=== PATIENT | male | born 1970 | race Caucasian/White ===

== ENCOUNTER 2016-12-12 14:26 | Emergency (ER) | payer OTHER ==
--- NOTE | 2016-12-12 15:51 | ED ORDER SUMMARY ---
..... Patient: LEONOR QUAN OrderSheet [facility] VisitID: [id number] [place] [address] 46y, M Registration Date/Time: 12/12/2016 ORDER SHEET Weight: 151.9 kg (stated) Allergies: Amoxicillin, Fish Allergy, Molasses GENERAL ORDERS: Chest 2V Urgent (14:44 12/12/2016 EKoroleva P.A.-C) (Ack 14:49 KHoerner) (Cancelled: Other14:49 EKoroleva P.A.-C) Rerecording Mixer (Continuous) (14:44 12/12/2016 EKoroleva P.A.-C) (14:54 LAbe R.N.) - (Carbamazepine (Tegretol)) (14:44 12/12/2016 EKoroleva P.A.-C) (Ack 14:49 KHoerner) (16:02 LAbe R.N.) Cardiac Panel Stat (14:44 12/12/2016 EKoroleva P.A.-C) (Ack 14:49 KHoerner) EKG - ER Stat (14:44 12/12/2016 EKoroleva P.A.-C) (14:49 KHoerner) POC Glucose (15:07 12/12/2016 LAbe R.N. per protocol) (16:02 LAbe R.N.) Seizure Precautions (15:07 12/12/2016 LAbe R.N. per protocol) (15:20 LAbe R.N.) MEDICATION ORDERS: Insulin Reg Subcut 10 units (HIGH ALERT MEDICATION, NOW) (15:29 12/12/2016 EKoroleva P.A.-C) IV FLUIDS: IV Saline Lock (14:44 12/12/2016 EKoroleva P.A.-C) (15:06 LAbe R.N.) ORDER SHEET NOTES: [Electronically signed by Mirlande Ramos R.N. (16:46 12/12/2016)] [Electronically signed by Parris Gerard PVadimAVadim-C (17:00 12/12/2016)] [Electronically locked/signed by Mirlande Ramos R.N. (16:46 12/12/2016)]
--- NOTE | 2016-12-12 15:51 | ED NURSING NOTES ---
Clinical Report - Nurses [facility] [address] [place] [address] 12/12/2016 14:28 Patient: LEONOR QUAN TRIAGE Triage time 1430. Acuity: LEVEL 3. Chief Complaint: POSSIBLE SEIZURE (single episode). Alert. No acute distress. SEPSIS SCREEN: Sepsis Screen: negative. Negative (no infection suspected/documented). Temperature less than 36 degrees C (96.8 degrees F), heart rate greater than 90 and glucose greater than 120 (with no history of diabetes). ANUSHA COMA SCORE: Anusha Coma Scale: 15- eyes open spontaneously (4); best verbal response- oriented x 4 (5); best motor response- obeys commands (6). --14:52 Mirlande Ramos R.N. 14:40 12/12/16. BP: 145/57. HR: 88. RR: 18. O2 saturation: 94%. Temp: 98.3 F. --14:52 Mirlande Ramos R.N. Weight: 151.9 kg stated. Height/Length: 72 inches Per Patient. BMI: 45.5. --14:46 Mirlande Ramos R.N. Medications TEGretol XR Oral 800mg, 2xdaily. --14:42 Mirlande Ramos R.N. Allergies Amoxicillin. Fish Allergy. Molasses. --14:42 Mirlande Ramos R.N. History Arrived by EMS. Historian: patient. Primary physician (Candie). ( patient states he has numbness in his left arm and it is a petite seisure, He remembers this incident.). No recent change in anticonvulsant medication. Did not miss recent dose of anticonvulsant. Treatment CHURCH SECRETARY: None. SOCIAL HX: Never smoker. No alcohol use or drug use. No infectious disease exposure. ABUSE ASSESSMENT: No report of abuse. SELF HARM ASSESSMENT: A self harm assessment was performed. The patient answered "no" to the question "Do you have thoughts of harming or killing yourself?" and "Are you here because you tried to hurt yourself?". FALL RISK ASSESSMENT: Fall risk assessment completed. No fall risk identified. NUTRITIONAL RISK ASSESSMENT: The nutritional risk assessment revealed no deficiencies. FUNCTIONAL ASSESSMENT: Functional assessment: no impairments noted. LEARNING NEEDS ASSESSMENT: The learning needs assessment revealed no barriers. SKIN INTEGRITY ASSESSMENT: Skin integrity risk assessment completed. No skin integrity risk identified. --14:52 Mirlande Ramos R.N. PROBLEMS: Hyponatremia. Obese. Hypokalemia. Seizure. Thyroid Disease. Hyperlipidemia. Diabetes Mellitus. Immunizations. Hypothyroidism. Hypertension. Hypercholesterolemia. Seizure Disorder. --14:43 Mirlande Ramos R.N. ADDITIONAL SURGERIES: Chest tube. Temporal lobe (partial removal). --14:43 Mirlande Ramos R.N. Interventions ID band on patient. To treatment room. --14:52 Mirlande Ramos R.N. PHYSICAL ASSESSMENT To room via stretcher. GENERAL / NEURO / PSYCH: Alert. Oriented X 4. Appears in no acute distress. No apparent seizure activity. Speech within normal limits. Patient appears well-nourished. HEENT: No facial asymmetry noted. RESPIRATORY: Respirations not labored. Breath sounds within normal limits. GI / : Bowel sounds within normal limits. SKIN: Skin intact. Skin is warm and dry. Normal skin turgor. --14:53 Mirlande Ramos R.N. NURSING PROGRESS NOTES Monitoring of patient in place. Patient gowned. Reassurance given. Two patient identifiers checked. Call light placed in reach. Side rails up x 2. Bed placed in lowest position. Brakes of bed on. Patient ready for evaluation- chart flagged. ED physician notified. --14:54 Mirlande Ramos R.N. 15:01 12/12/2016 Site #1 started via IV in the right antecubital space with an 20g angiocath, with aseptic technique and good blood return; one attempt. Blood drawn: rainbow set. Labeled in the presence of the patient and sent to the lab. Saline lock flushed with 5 mL saline. --15:06 Mirlande Ramos R.N. Seizure precautions initiated: side rails up x2 and padded, patient in view of nurse's station and call house in reach. --15:15 Mirlande Ramos R.N. <<STRICKEN ENTRY-- Finger stick glucose: 355 15:32; ordered; performed by nurse; result shown to the PA. --15:33 Mirlande Ramos R.N. --END STRIKE>> Correction --15:59 Mirlande Ramos R.N. 15:30 12/12/16. BP: 120/55. HR: 87. RR: 21. O2 saturation: 92%. 15:00 12/12/16. BP: 103/83. HR: 88. RR: 21. O2 saturation: 93%. --15:58 Mirlande Ramos R.N. Overall patient status is the same. GENERAL / NEURO / PSYCH: Alert. Oriented X 4. Patient appears calm and cooperative. No weakness or numbness. RESPIRATORY: No respiratory distress. SKIN: Skin is warm and dry. --15:58 Mirlande Ramos R.N. 13:50. ( patient refused Insulin R SQ, provider notified). --16:39 Mirlande Ramos R.N. 15:20. Finger stick glucose: 355 1520; ordered; performed by nurse; result shown to the PA. PA notified about patient's status. ( notified PA about blood sugar increase.). --16:00 Mirlande Ramos R.N. 16:30 12/12/2016 Site #1 removed upon discharge. Pressure dressing applied. --16:40 Mirlande Ramos R.N. 16:00 12/12/16. BP: 136/70. HR: 84. RR: 20. O2 saturation: 92%. Temp: 97.7 F. Pain level now: 0/10. --16:42 Mirlande Ramos R.N. DISPOSITION / DISCHARGE 16:30. Departure time: 1630. Condition at departure: unchanged. No learning barriers present. Discharge instructions provided and reviewed with the patient. Follow up contact number appt made for follow up with pcp. Patient verbalized understanding. Written instructions provided in Croatian. The patient left the Emergency Department against medical advice and without completion of treatment; patient was unaccompanied. The patient appears to be alert, oriented x4, coherent and in no acute distress. The patient notified the ED staff prior to leaving the department and stated is leaving the ED (declined recommened treatments). Prior to leaving the ED, he was advised to stay for completion of treatment and return if needed. He was informed of the risks of leaving and verbalized understanding of these risks. Patient signed form prior to leaving. He left the Emergency Department ambulatory. The patient was discharged home. He left the Emergency Department ambulatory and via private vehicle. Patient driving. --16:44 Mirlande Ramos R.N. 16:30. --16:46 Mirlande Ramos R.N. 16:30 12/12/16. BP: deferred. HR: deferred. RR: deferred. O2 saturation: deferred. Temp: deferred. Pain level now deferred. --16:46 Mirlande Ramos R.N. Locked/Released at 12/12/2016 16:46 by Mirlande Ramos R.N.
--- NOTE | 2016-12-12 15:51 | ED ORDER SUMMARY ---
..... Patient: LEONOR QUAN OrderSheet [facility] VisitID: [id number] [place] [address] 46y, M Registration Date/Time: 12/12/2016 ORDER SHEET Weight: 151.9 kg (stated) Allergies: Amoxicillin, Fish Allergy, Molasses GENERAL ORDERS: Chest 2V Urgent (14:44 12/12/2016 EKoroleva P.A.-C) (Ack 14:49 KHoerner) (Cancelled: Other14:49 EKoroleva P.A.-C) Service Sprinkler Helper (Continuous) (14:44 12/12/2016 EKoroleva P.A.-C) (14:54 LAbe R.N.) - (Carbamazepine (Tegretol)) (14:44 12/12/2016 EKoroleva P.A.-C) (Ack 14:49 KHoerner) (16:02 LAbe R.N.) Cardiac Panel Stat (14:44 12/12/2016 EKoroleva P.A.-C) (Ack 14:49 KHoerner) EKG - ER Stat (14:44 12/12/2016 EKoroleva P.A.-C) (14:49 KHoerner) POC Glucose (15:07 12/12/2016 LAbe R.N. per protocol) (16:02 LAbe R.N.) Seizure Precautions (15:07 12/12/2016 LAbe R.N. per protocol) (15:20 LAbe R.N.) MEDICATION ORDERS: Insulin Reg Subcut 10 units (HIGH ALERT MEDICATION, NOW) (15:29 12/12/2016 EKoroleva P.A.-C) IV FLUIDS: IV Saline Lock (14:44 12/12/2016 EKoroleva P.A.-C) (15:06 LAbe R.N.) ORDER SHEET NOTES: [Electronically signed by Mirlande Ramos R.N. (16:46 12/12/2016)] [Electronically signed by Parris Gerard PVadimAVadim-C (17:00 12/12/2016)] [Electronically locked/signed by Mirlande Ramos R.N. (16:46 12/12/2016)]
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
--- NOTE | 2016-12-12 17:00 | ED MAR SUMMARY ---
..... Medication Administration Record [facility] [address] [place], [place] [id number] Patient: LEONOR QUAN Visit ID: [id number] 46y, M Weight: 151.9 kg Height/Length: 72 in BMI: 45.5 ALLERGIES: Amoxicillin, Fish Allergy, Molasses
--- NOTE | 2016-12-12 17:00 | ED MED RECONCILIATION SUMMARY ---
Patient: LEONOR QUAN Medication Reconciliation Report [facility] VisitID: [id number] [address] [place] [address] 46y, M Registration Date/Time: 12/12/2016 Weight: 151.9 kg Height/Length: 72 in. BMI: 45.5 ALLERGIES: Amoxicillin, Fish Allergy, Molasses The patient's Home Medications are listed below: THE FOLLOWING MEDICATIONS NEED TO BE RECONCILED: TEGretol XR Oral 800mg, 2xdaily The source(s) of the original Home Medication information: Not obtained. The following Medications were given to the patient in the Emergency Department: None. The following Medications were prescribed to the patient: None.
--- NOTE | 2016-12-12 17:00 | ED DISCHARGE INSTRUCTIONS ---
Patient: LEONOR QUAN General Instructions [facility] VisitID: [id number] [place] [address] 46y, M Registration Date/Time: 12/12/2016 Seizure No new onset seizure. Not associated with sub-therapeutic anticonvulsant levels. Diabetes. Essential hypertension. INSTRUCTIONS (Follow up with Dr Schreiber 12/17 at 9:20 YOU ARE DIABETIC and NEED TO MONITOR YOUR DIET WELL BE MEDICATED CONTINUE TAKING YOUR SEIZURE MEDS PRESCRIBED NO HEIGHTS, NO DRIVING OR OPERATING MACHINERY, NO SWIMMING). Warnings: Further evaluation is necessary. TAKE SEIZURE MEDICATION INSTRUCTED. Follow-up: Follow up with your doctor DECEMBER !! ADDITIONAL INFORMATION Recurrent Seizure [Adult] You have had another seizure today. A common cause of recurrent seizure is missing doses of the seizure medicine. However, sometimes seizures are difficult to control even when you take the medicine correctly. If this is the case for you, it may be necessary to increase your dosage or add or change to another medicine. Home Care: For This Seizure: Since seizures are not predictable, you must avoid doing anything that might cause danger to you or others if you have another one. Therefore, until the seizures are under good control, take these precautions: Do not drive a car, bicycle or motorcycle Do not operate dangerous equipment such as power tools Use a shower instead of a bath Do not swim or climb (ladders, trees, roofs) Tell your close friends and relatives about your seizure and teach them what to do for you if it happens again. If you were prescribed a medicine to prevent seizures, take it exactly as directed. It does not work when taken on an "as needed" basis. Missing doses will increase the risk of having another seizure. If you miss a dose, take the missed dose as soon as you remember. If it is almost time for your next dose, skip the missed dose. Restart the medicine at your next scheduled time. Do not take extra medicine to make up the missed dose. Wear a "Medic-Alert" bracelet to advise emergency personnel of your condition. For Future Seizures: If You Are Alone: If you feel a seizure coming on, the best thing to do is to lie down on a bed or on the floor. Lie on your side, not on your back. This will prevent falling, promote drainage of oral secretions out of the mouth and prevent choking. Be sure that you are clear of any objects that might injure you during the seizure. Call for help if there is time. If Someone Is With You: If someone is with you before the seizure, they should help you get in a safe position and call for help. They should not try to force anything in your mouth once the seizure has begun. Doing this may cause injury. Follow Up with your doctor, or as directed by our staff. NOTE: For the safety of yourself and others on the road, certain states require that the treating doctor inform the Public Health Department of any adult who is treated for a seizure and is at risk of further seizures. In this case, the Department of Motor Vehicles (DMV) will be notified and a restriction will be placed on your drivers license until a doctor gives you medical clearance to drive again. Contact your treating doctor to find out if your state requires the reporting of patients with a seizures condition. Get Prompt Medical Attention if any of the following occur: Seizures occurring more often or becoming longer than usual Seizure lasting over 5 minutes No wake-up between seizures Remaining confused for more than 30 minutes after a seizure Injury during a seizure Fever over 100.4F (38.0C) Unusual irritability, drowsiness or confusion Stiff or painful neck Worsening headache High Blood Pressure --Established High Blood Pressure (Hypertension) is a chronic disease. The cause is unknown in most cases. It can usually be controlled with lifestyle changes and/or medicines. Symptoms of high blood pressure may include headache, dizziness, visual changes, chest pain and shortness of breath. Sometimes it causes no symptoms at all. However, even if there are no symptoms, untreated high blood pressure increases the risk of heart attack, also known as acute myocardial infarction, or AMI, and stroke. It is a serious health risk and should not be ignored. A normal blood pressure is 120/80 or less. The first (top) number is the "systolic" pressure. The second (bottom) number is the "diastolic" pressure. Hypertension exists when either the top number is 140 or higher, OR the bottom number is 90 or higher on repeated measurements. Home Care: All patients with high blood pressure should do the following to lower their pressure. If you are on medicines, then these methods may reduce or eliminate your need for medicines in the future. Begin a weight loss program if you are overweight. Reduce your salt intake. Avoid high salt foods (olives, pickles, smoked meats, salted potato chips, etc.). Do not add salt to your food at the table. Use only small amounts of salt when cooking. Begin an exercise program. Discuss with your doctor what type of exercise program would be best for you. It doesn't have to be difficult. Even brisk walking for 20 minutes three times a week is a good form of exercise. Avoid medicines which contain heart stimulants. This includes many cold and sinus decongestant pills and sprays as well as diet pills. Check the warnings about hypertension on the label. Stimulants such as amphetamine or cocaine could be lethal for someone with hypertension. Never take these. Limit your caffeine intake or switch to caffeine-free products. Stop smoking. If you are a long-time smoker, this can be hard. Enroll in a stop-smoking program to improve your chance of success. Learning how to handle stress better is an important part of any program to lower blood pressure. Learn about relaxation methods such as meditation, yoga or biofeedback. If medicines were prescribed, take them exactly as directed. Missing doses may cause your blood pressure get out of control. Consider buying an automatic blood pressure machine (available at most pharmacies). Use this to monitor your blood pressure at home and report the results to your doctor. Follow Up: Regular visits to your own physician for blood pressure checks and medicine adjustment is an important part of your care. Make a follow-up appointment as directed by our staff. Get Prompt Medical Attention if any of the following occur: Chest pain or shortness of breath Severe headache Throbbing or rushing sound in the ears Nosebleed Sudden severe abdominal pain Extreme drowsiness, confusion or fainting Dizziness or vertigo (dizziness with spinning sensation) Weakness of an arm or leg or one side of the face Difficulty with speech or vision Hypertension, Out Of Control (Established) Your blood pressure was unusually high today. This can occur as a result of missing doses of your blood pressure medicine. Some asthma inhalers, decongestants, diet pills, and street drugs such as cocaine and amphetamine can worsen hypertension. An increase in body weight, increase in salt intake, smoking, and caffeine are other causes. Emotional upset or acute pain can cause a sudden rapid rise in blood pressure which may return to normal after a period of rest. A normal blood pressure is less than 140/90. The first (top) number is the systolic pressure. The second (bottom) number is the diastolic pressure. Hypertension exists when either the top number is 140 or higher, OR the bottom number is 90 or higher on repeated measurements. Home Care: All patients with high blood pressure should do the following to lower their pressure. If you are on blood pressure medicines, then these methods may reduce or eliminate your need for medicines in the future. Begin a weight-loss program if you are overweight. Reduce your salt intake. Avoid high-salt foods (olives, pickles, smoked meats, salted potato chips, etc.). Do not add salt to your food at the table. Use only small amounts of salt when cooking. Begin an exercise program. Discuss with your doctor what type of exercise program would be best for you. It doesnt have to be difficult. Even brisk walking for 20 minutes3 times a week is a good form of exercise. Avoid medicines which contain heart stimulants. This includes many cold and sinus decongestant pills and sprays as well as diet pills. Check the warnings about hypertension on the label. Stimulants such as amphetamine or cocaine could be lethal for someone with hypertension. Never take these. Limit your caffeine intake or switch to decaf. Stop smoking. If you are a long-time smoker, this can be hard. Enroll in a stop-smoking program to improve your chance of success. Talk to your physician about ways to improve your chance of success. Learning how to handle stress better is an important part of any program to lower blood pressure. Learn about relaxation methods such as meditation, yoga, or biofeedback. If medicines were prescribed, take them exactly as directed. Missing doses may cause your blood pressure to get out of control. Consider buying an automatic blood pressure machine (available at many pharmacies). Use this to monitor your blood pressure and report to your doctor. Follow Up: Regular visits to your own doctor for blood pressure checks and medicine adjustment is an important part of your care. Make a follow-up appointment as directed by our staff. Get Prompt Medical Attention if any of the following occur: Chest, arm, shoulder, neck, or upper back pain Shortness of breath Severe headache Throbbing or rushing sound in the ears Nosebleed Extreme drowsiness, confusion, or fainting Dizziness or vertigo (dizziness with spinning sensation) Weakness of an arm or leg or one side of the face Difficulty with speech or vision You have been given the following additional information: Seizure, Recurrent [Adult] Hypertension, Established Hypertension, Established, Out Of Control (Electronically signed by Parris Gerard P.A.-C 12/12/2016 17:00)
--- NOTE | 2016-12-12 17:00 | ED MED RECONCILIATION SUMMARY ---
Patient: LEONOR QUAN Medication Reconciliation Report [facility] VisitID: [id number] [address] [place] [address] 46y, M Registration Date/Time: 12/12/2016 Weight: 151.9 kg Height/Length: 72 in. BMI: 45.5 ALLERGIES: Amoxicillin, Fish Allergy, Molasses The patient's Home Medications are listed below: THE FOLLOWING MEDICATIONS NEED TO BE RECONCILED: TEGretol XR Oral 800mg, 2xdaily The source(s) of the original Home Medication information: Not obtained. The following Medications were given to the patient in the Emergency Department: None. The following Medications were prescribed to the patient: None.
--- NOTE | 2016-12-12 17:00 | ED MAR SUMMARY ---
..... Medication Administration Record [facility] [address], [place] [id number] Patient: LEONOR QUAN Visit ID: [id number] 46y, M Weight: 151.9 kg Height/Length: 72 in BMI: 45.5 ALLERGIES: Amoxicillin, Fish Allergy, Molasses
== END 2016-12-12 16:30 | disposition left against medical advice (07) ==
LOC: ED SRH 14:26
DX: G40.909 Epilepsy, unspecified, not intractable, without status epilepticus (principal); E11.9 Type 2 diabetes mellitus without complications; I10 Essential (primary) hypertension; Z79.899 Other long term (current) drug therapy; Z88.1 Allergy status to other antibiotic agents
CPT/HCPCS: 90098; 90100; 90616; 92095; 92610; 92720; 95059